=== PATIENT | female | born 1955 | race Caucasian/White ===

== ENCOUNTER → 2016-12-07 | Outpatient (CLI) | payer BC, OTHER ==
[~2016-12-07] MED LIST: LORTAB 5/500 501 TAB PO; NORCO 325 MG-51 TAB PO; PHENERGAN 25 TA25 MG PO; PROAIR HFA0.09 MG/AC IH; SINGULAIR 110 MG/TAB PO; VERAMYST27.5 MCG/A NS; ZYRTEC 10MG10 MG PO
== END ==
LOC: MC.RAD 07:00
DX: Z12.31 Encounter for screening mammogram for malignant neoplasm of breast (principal); N64.89 Other specified disorders of breast

== ENCOUNTER → 2016-12-10 | Outpatient (CLI) | payer BC, OTHER | LOC: MC.RAD 07:30 | DX: N63 Unspecified lump in breast (principal); N64.89 Other specified disorders of breast ==

== ENCOUNTER → 2016-12-27 | Outpatient (CLI) | payer BC, OTHER | LOC: COL.RAD 12:09 | DX: C50.912 Malignant neoplasm of unspecified site of left female breast (principal) | CPT/HCPCS: A9541; J0690; J1100; J1885; J2250; J2405; J2704; J2795; J3010; J7120 ==

== ENCOUNTER 2016-12-28 06:46 | Day surgery (SDC) | payer BC, OTHER ==
[2016-12-28] VITALS (7 sets, daily range): BP systolic 101–144; BP diastolic 76–89; PULSE 56–77; TEMP 98.4
[~2016-12-28] VITALS: Ht 170.2 cm; Wt 67.1 kg
[~2016-12-28 06:46] MED LIST changes: -NORCO 325 MG-51 TAB PO; -PROAIR HFA0.09 MG/AC IH
[2016-12-28] MEDS ORDERED: PROAIR HFA0.09 MG/AC IH (08:57)
[2016-12-28] MEDS ORDERED: NORCO 325 MG-51 TAB PO (11:18)
== END 2016-12-28 13:58 | disposition home or self-care (01) ==
LOC: SDCO 06:46
DX: D05.12 Intraductal carcinoma in situ of left breast (principal); I10 Essential (primary) hypertension; J45.909 Unspecified asthma, uncomplicated; Z80.3 Family history of malignant neoplasm of breast; Z80.0 Family history of malignant neoplasm of digestive organs
CPT/HCPCS: J2270; J7120

== ENCOUNTER → 2017-12-12 | Outpatient (CLI) | payer BC, OTHER ==
[~2017-12-12] MED LIST changes: +NORCO 325 MG-51 TAB PO; +PROAIR HFA0.09 MG/AC IH
== END ==
LOC: MC.RAD 13:20
DX: Z12.31 Encounter for screening mammogram for malignant neoplasm of breast (principal); Z85.3 Personal history of malignant neoplasm of breast; Z90.12 Acquired absence of left breast and nipple; Z92.3 Personal history of irradiation

== ENCOUNTER 2018-06-07 20:57 | Inpatient (IN) | payer OTHER ==
[~2018-06-07] VITALS: Ht 170.2 cm; Wt 68.2 kg
[2018-06-07 21:57] LABS: BASO # 0.1 (0.0-0.2); BASO % 0.9 % (0.0-2.0); EOS # 0.1 (0.0-0.7); EOS % 1.5 % (0-4.0); GRAN # 3.8 (1.4-6.5); GRAN % 69.2 % (42.2-75.2); LYMPH # 1.1 (1.2-3.4); LYMPH % 19.5 % (20.0-51.0); MEAN CELL VOLUME 91 fl (80.0-100.0); MEAN CORPUSCULAR HGB CONC 33 g/dl (33.0-37.0); MEAN PLATELET VOLUME 9.5 fl (7.4-10.4); MONO # 0.5 (0.1-0.6); MONO % 8.5 % (1.7-9.3); PLATELET COUNT 235 K/mm3 (130-400); RED BLOOD COUNT 3.18 M/mm3 (4.10-5.30); REDCELL DISTRIBUTION WIDTH-CV 13.2 % (11.5-14.5)
[2018-06-07 22:00] LABS: HEMOGLOBIN 9.5 g/dl (12.5-16.0); MEAN CORPUSCULAR HEMOGLOBIN 30 pg (27.0-31.0)
[2018-06-07] MEDS ORDERED: ARIMIDEX1 MG PO (22:04)
[2018-06-07] MEDS ORDERED: FOSAMAX5 MG PO (22:05)
[2018-06-07 22:14] LABS: ALBUMIN 3.5 gm/dL (3.5-5.0); BILIRUBIN,TOTAL 0.3 mg/dL (0.0-1.0); CREATININE, serum 0.7 mg/dL (0.52-1.25); POTASSIUM 3.7 mmol/L (3.4-5.0); TOTAL PROTEIN 5.8 gm/dL (6.4-8.2)
[2018-06-08] VITALS (13 sets, daily range): BP systolic 111–136; BP diastolic 69–80; PULSE 78–108; TEMP 98–98.5
--- NOTE | 2018-06-08 00:48 | NUR ---
PT came to the floor at 0000 with . pt has a flushed/pale skin tone. assisted x2 to BSC- pt did well but reported feeling fait. reports no pain. lung sounds clear x4. audible bowel sounds x4. IV flushes well. hand warp tester equal. no N/V at this time. call light in reach
[2018-06-08 00:54] LABS: HEMATOCRIT 25.9 % (37.0-47.0); HEMOGLOBIN 8.4 g/dl (12.5-16.0)
--- NOTE | 2018-06-08 01:44 | NUR ---
see vitals via monitor intervention
--- NOTE | 2018-06-08 01:45 | NUR ---
see monitor interventions for vitals
--- NOTE | 2018-06-08 01:46 | NUR ---
see monitor intervention for vitals
--- NOTE | 2018-06-08 01:47 | NUR ---
see vitals in monitor intervention
--- NOTE | 2018-06-08 01:48 | NUR ---
see vitals via monitor intervention
[2018-06-08] MEDS ORDERED: CALCIUM CARBON650 M2 (02:14)
[2018-06-08] MEDS ORDERED: VITAMIN D 400400 IU PO ×2 (02:31→02:33)
--- NOTE | 2018-06-08 03:38 | NUR ---
resting in bed A+Ox4 with at bedside. pt vitals stable. heart rate increased to 130 during transfer to BS. no pain. no N/V. pt reports syncope when getting up to bsc. no needs at this time. call light inreach
--- NOTE | 2018-06-08 06:58 | NUR ---
report given to XOCHILT Whitaker. pt reports no needs
[2018-06-08 07:48] LABS: MEAN CELL VOLUME 90 fl (80.0-100.0); MEAN CORPUSCULAR HGB CONC 33 g/dl (33.0-37.0); MEAN PLATELET VOLUME 9.9 fl (7.4-10.4); PLATELET COUNT 217 K/mm3 (130-400); RED BLOOD COUNT 2.66 M/mm3 (4.10-5.30); REDCELL DISTRIBUTION WIDTH-CV 13.1 % (11.5-14.5)
[2018-06-08 07:58] LABS: HEMATOCRIT 23.8 % (37.0-47.0); HEMOGLOBIN 7.9 g/dl (12.5-16.0); MEAN CORPUSCULAR HEMOGLOBIN 30 pg (27.0-31.0)
[2018-06-08 08:04] LABS: CALCIUM 7.5 mg/dL (8.4-10.2); CREATININE, serum 0.52 mg/dL (0.52-1.25)
--- NOTE | 2018-06-08 09:08 | NUR ---
Initial visit; Patient thanked Nurses' Aide for offering encouragement and prayer.
--- NOTE | 2018-06-08 09:31 | NUR ---
BUSTER and SW student met with the patient and patient's , Kd, to discuss discharge plan. The patient lives with her in [place]. The patient does not use any DME and states independence with ADLs prior to hospitalization. The patient's PCP is Dr. Deepthi Marin at [facility]. The patient also receives her medications from [facility] and reports no difficulties obtaining her medications. The patient and patient's state that the patient does have a DPOA-HC completed. The patient plans to return home with her upon discharge. PT has been ordered. SW to continue to follow.
[2018-06-08 09:35] LABS: BAND 8 % (0-10); LYMPHOCYTE 7 % (20.0-51.0); NEUTROPHILS 84 % (42.0-75.2)
[2018-06-08 09:36] LABS: PLATELET ESTIMATE NORMAL (NORMAL)
--- NOTE | 2018-06-08 13:32 | NUR ---
Pt. in bed, call light within reach. Spouse at bedside. INT site no redness drainage or edema. C/o constant pain on RLQ 07/26. Does not want meds at this time.
[2018-06-08 16:09] LABS: HEMATOCRIT 22.2 % (37.0-47.0); HEMOGLOBIN 7.5 g/dl (12.5-16.0)
--- NOTE | 2018-06-08 18:00 | NUR ---
Patient is doing much better this evening than she was this am. She still feels weak and is slow moving around. She was trying to decide if she wanted to stay the night or go home but decided to stay. She was worried about going home with her HGB still being low. She was also worried about having more bleeding when she got home. Her daughter is staying the night with her. No other changes at this time. Call light within reach.
[2018-06-09] VITALS (11 sets, daily range): BP systolic 102–134; BP diastolic 61–84; PULSE 86–121; TEMP 98.1–99
[2018-06-09 06:22] LABS: BASO % 0.6 % (0.0-2.0); EOS # 0.1 (0.0-0.7); EOS % 1.3 % (0-4.0); GRAN # 3.1 (1.4-6.5); GRAN % 59.8 % (42.2-75.2); LYMPH # 1.5 (1.2-3.4); LYMPH % 29.4 % (20.0-51.0); MEAN CELL VOLUME 90 fl (80.0-100.0); MEAN CORPUSCULAR HGB CONC 34 g/dl (33.0-37.0); MONO # 0.4 (0.1-0.6); MONO % 8.5 % (1.7-9.3); PLATELET COUNT 172 K/mm3 (130-400); RED BLOOD COUNT 2.17 M/mm3 (4.10-5.30); REDCELL DISTRIBUTION WIDTH-CV 13.5 % (11.5-14.5)
[2018-06-09 06:29] LABS: HEMATOCRIT 19.6 % (37.0-47.0); MEAN CORPUSCULAR HEMOGLOBIN 31 pg (27.0-31.0)
[2018-06-09 06:32] LABS: HEMOGLOBIN 6.7 g/dl (12.5-16.0)
[2018-06-09 06:37] LABS: CREATININE, serum 0.66 mg/dL (0.52-1.25); POTASSIUM 3.8 mmol/L (3.4-5.0)
--- NOTE | 2018-06-09 06:45 | NUR ---
PT HAD UNEVENTFUL NOC. NO ISSUES OR CONSERNS VOICED THIS SHIFT. PLESANT AND COOPERATIVE WITH CARES. APPEARED TO HAVE SLEPT WELL THIS NOC
--- NOTE | 2018-06-09 12:23 | NUR ---
Blood transfusion started at this time. Protocol followed. Blood initiated at 60ml an hour. Explained signs and symptoms of reactions. Patient verbalized understanding. Blood checked with Benita Gregg RN. Will stay in room to monitor patient for 15 minutes. Will continue to monitor blood transfusion after. No changes at this time.
--- NOTE | 2018-06-09 12:40 | NUR ---
Patient continues to be without signs or symptoms of a reaction. Increased transfusion rate to 100ml/hr. Vital signs are stable. Explained to call with any changes. Call light within reach.
--- NOTE | 2018-06-09 13:12 | NUR ---
Pt. in bed, Call light within reach. AOx4 VSS. C/o pain 0/10. Blood transfusing. IV site LT antecubital no redness, drainage, or edema. Daughter at bedside.
--- NOTE | 2018-06-09 15:10 | NUR ---
Blood transfusion has finished at this time. Patient tolerated well. Patient stated she feels a little better and perked up a bit. No other changes at this time. Call light within reach.
[2018-06-09] MEDS ORDERED: FERROUS SU325 MG/TAB PO (15:35)
--- NOTE | 2018-06-09 16:13 | NUR ---
SW and SW student met with the patient to review discharge plan. The patient states her doctor told her she should be ready to discharge tomorrow, 06/10. The patient plans to return home with her , Kd. No additional needs at this time.
--- NOTE | 2018-06-09 19:00 | NUR ---
Patient has been doing well since her blood transfusion. She stated she is feeling better and seems to have a bit more energy. Family at bedside. The plan is for her to discharge in the morning.
--- NOTE | 2018-06-09 19:41 | NUR ---
Pt up to chair. Family at bedside. Pt denies pain or weakness. No distress noted. Assessment WNL. Will continue to monitor.
[2018-06-10 03:33] VITALS: BP 100/56; PULSE 85; TEMP 98.3
--- NOTE | 2018-06-10 06:20 | NUR ---
Pt slept throughout the night without any needs. No distress or pain noted.
[2018-06-10 07:20] LABS: BASO % 0.9 % (0.0-2.0); EOS # 0.1 (0.0-0.7); EOS % 2.8 % (0-4.0); GRAN % 64.3 % (42.2-75.2); MEAN CELL VOLUME 91 fl (80.0-100.0); MEAN CORPUSCULAR HGB CONC 34 g/dl (33.0-37.0); MEAN PLATELET VOLUME 9.6 fl (7.4-10.4); MONO # 0.5 (0.1-0.6); MONO % 9.8 % (1.7-9.3); PLATELET COUNT 196 K/mm3 (130-400); REDCELL DISTRIBUTION WIDTH-CV 13.3 % (11.5-14.5)
[2018-06-10 07:25] LABS: HEMATOCRIT 23.6 % (37.0-47.0); HEMOGLOBIN 7.9 g/dl (12.5-16.0); MEAN CORPUSCULAR HEMOGLOBIN 30 pg (27.0-31.0)
[2018-06-10 07:28] LABS: CALCIUM 8.4 mg/dL (8.4-10.2); CREATININE, serum 0.64 mg/dL (0.52-1.25); POTASSIUM 3.8 mmol/L (3.4-5.0)
--- NOTE | 2018-06-10 08:26 | NUR ---
Assessment completed, alert/oriented, vital signs stable, denies pain or discomfort, hemaglobin is up to 7.9 this morning, she reports a very small amount of blood noted in stool this morning, heart RRR/distal pulses are palpable, denies feeling lightheaded or dizzy with ambulation, denies any SOA or resp.difficulty, lungs CTA, family present in the room and patient is sitting up eating breakfast, denies other needs at this time
[2018-06-10 10:57] VITALS: BP 113/75; PULSE 104; TEMP 98
[2018-06-10 13:25] LABS: HEMATOCRIT 26.9 % (37.0-47.0); HEMOGLOBIN 8.9 g/dl (12.5-16.0)
--- NOTE | 2018-06-10 14:47 | NUR ---
discharge instructions reviewed with the patient and her , instructed to follow up with PCP and GI as recommended, instructed to have CBC drawn within 1 week, IV removed, leaving with her , I personally escorted them out the door
== END 2018-06-10 14:50 | disposition home or self-care (01) | DRG 920 ==
LOC: COL.ER 20:57 → SURG 22:10 → COL.ER 22:10 → SURG 06-08 01:20
PROVIDERS: Emergency Medicine; Hospitalist; Internal Medicine Gastroenterology; Nurse Practitioner Family; Physician Assistant; ADMIT Internal Medicine
PROC: 0DBH8ZX Excision of Cecum, Via Natural or Artificial Opening Endoscopic, Diagnostic (ICD-10-PCS; principal; 2018-06-07 10:00)
DX: K91.840 Postprocedural hemorrhage of a digestive system organ or structure following a digestive system procedure (principal); E87.1 Hypo-osmolality and hyponatremia; K92.1 Melena; D62 Acute posthemorrhagic anemia; D12.0 Benign neoplasm of cecum; Z85.3 Personal history of malignant neoplasm of breast; J45.909 Unspecified asthma, uncomplicated
CPT/HCPCS: OP; 99232-AI; 99239; G0378; J0330; J1100; J2370; J2405; J2704; J3010; J7030; J7050; P9016

== ENCOUNTER → 2018-12-12 | Outpatient (CLI) | payer OTHER ==
[~2018-12-12] MED LIST changes: +ARIMIDEX1 MG PO; +CALCIUM CARBON650 M2; +FERROUS SU325 MG/TAB PO; +FOSAMAX5 MG PO; +VITAMIN D 400400 IU PO
== END ==
LOC: MC.RAD 09:05
DX: Z12.31 Encounter for screening mammogram for malignant neoplasm of breast (principal); C50.212 Malignant neoplasm of upper-inner quadrant of left female breast; N64.89 Other specified disorders of breast; Z98.890 Other specified postprocedural states; Z92.3 Personal history of irradiation

== ENCOUNTER → 2018-12-19 | Outpatient (CLI) | payer OTHER | LOC: MC.RAD 12:55 | DX: C50.212 Malignant neoplasm of upper-inner quadrant of left female breast (principal) | CPT/HCPCS: G0279 ==

== ENCOUNTER → 2019-12-17 | Outpatient (CLI) | payer OTHER | LOC: MC.RAD 09:51 | DX: Z12.31 Encounter for screening mammogram for malignant neoplasm of breast (principal); Z92.3 Personal history of irradiation; Z98.890 Other specified postprocedural states; Z85.3 Personal history of malignant neoplasm of breast ==

== ENCOUNTER → 2020-12-17 | Outpatient (CLI) | payer OTHER | LOC: MC.RAD 09:55 | DX: Z12.31 Encounter for screening mammogram for malignant neoplasm of breast (principal) ==

== ENCOUNTER → 2021-12-22 | Outpatient (CLI) | payer OTHER | LOC: MC.RAD 09:50 | DX: Z12.31 Encounter for screening mammogram for malignant neoplasm of breast (principal); Z85.3 Personal history of malignant neoplasm of breast; Z90.12 Acquired absence of left breast and nipple; Z92.3 Personal history of irradiation ==